=== PATIENT | male | born 1990 | race Two or more races ===

== ENCOUNTER 2020-12-31 22:37 | Emergency (ER) | payer SELFPAY ==
[~2020-12-31] VITALS: Ht 170.2 cm; Wt 72.6 kg
[2020-12-31 22:53] VITALS: BP 124/71
[2020-12-31] MEDS ORDERED: VANCOMYCIN 1 GM VIAL ONE (23:14)
[2020-12-31] MEDS ORDERED: MORPHINE SULFATE INJ 2 MG/ML DISP.SYRIN ONE (23:14)
[2020-12-31] MEDS ORDERED: VANCOMYCIN 1 GM in IV D5W 250 ML IV ONE (23:30)
[2020-12-31] MEDS ORDERED: MORPHINE SULFATE INJ 2 MG/ML DISP.SYRIN IV ONE (23:30)
== END 2020-12-31 23:27 | disposition home or self-care (01) ==
LOC: ER 23:01
DX: M79.644 Pain in right finger(s) (principal); M79.89 Other specified soft tissue disorders
CPT/HCPCS: J2270; J3370